=== PATIENT | male | born 1995 | race Two or more races ===

== ENCOUNTER 2021-02-21 01:00 | Emergency (ER) | payer MEDICAID, OTHER ==
[~2021-02-21] VITALS: Ht 182.9 cm; Wt 81.6 kg
[2021-02-21] MEDS ORDERED: LIDOCAINE 1%-EPI 1:100,000 20 ML VIAL TP ONE (01:30)
[2021-02-21] MEDS ORDERED: TDAP [DIPH/PERTUSSIS/TET] 0.5 ML VIAL IM ONE ×2 (01:30→02:03)
[2021-02-21] MEDS ORDERED: LIDOCAINE 1%-EPI 1:100,000 20 ML VIAL ONE (02:01)
[2021-02-21] MEDS ORDERED: IBUPROFEN 400 MG TABLET ONE (02:09)
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
[2021-02-21] MEDS ORDERED: IBUPROFEN 400 MG TABLET PO ONE (02:30)
[2021-02-21 04:03] VITALS: BP 129/76
--- NOTE | 2021-02-21 04:04 | NUR ---
PT OK TO DISCHARGE HOME PER DR CHARLES. Patient discharged to home in stable condition. Written and verbal after care instructions given. Patient verbalizes understanding of instruction.Patient is awake and alert to self, day, and place. PT ambulatory with a steady gait
== END 2021-02-21 04:05 | disposition home or self-care (01) ==
LOC: ER 01:07
DX: S01.81XA Laceration without foreign body of other part of head, initial encounter (principal); S60.512A Abrasion of left hand, initial encounter; S60.511A Abrasion of right hand, initial encounter; R68.84 Jaw pain; Z60.2 Problems related to living alone; W05.1XXA Fall from non-moving nonmotorized scooter, initial encounter; Y93.55 Activity, bike riding; Y92.89 Other specified places as the place of occurrence of the external cause; Y99.8 Other external cause status
CPT/HCPCS: 12011; 70486; 90471; 90715; 99284; J3490